=== PATIENT | female | born 1965 | race Caucasian/White ===

== ENCOUNTER 2020-03-18 18:40 | Emergency (ER) | payer OTHER ==
[2020-03-18] MEDS ORDERED: KEFLEX 500 MG PO ONE (19:23)
[2020-03-18] MEDS ORDERED: KEFLEX 500 MG ONE (19:27)
--- NOTE | 2020-03-18 19:27 | ERPHSYRPT ---
- History of Present Illness Time Seen by Provider: 03/18/20 19:12 Source: patient Exam Limitations: no limitations Patient Subjective Stated Complaint: cyst Triage Nursing Assessment: pt to ED c/o abscsess to lower L abd that has been there for 10 years. PCP knows about cyst, however pt scraped it with a dresser while moving 2 wks ago and has been draining. "yellow gross fluid then dark thick blood." rates 8/10 pain when anything (palpation or clothing) touches cyst. no drainage on arrival to ED. Physician History: 54 years old female with history of anxiety, hypertension, hypothyroidism presented in the ER with a chief complaint of small cyst on left anterior abdominal wall with some swelling and pain for the last couple of days. Patient report she had the cyst for years and 2 weeks ago she accidentally hit against the furniture while moving at the end had drainage of yellow cheesy stuff which improved. Since couple of days she is having increasing pain and some redness around this swelling and localized increased temperature. Although she did not notice any discharge. Pain is mild to moderate intensity dull to sharp in nature, more with palpation, squeezing. Denies any fever or chills. No sick contact. Allergies/Adverse Reactions: egg Allergy (Verified 03/18/20 19:02) latex Allergy (Verified 03/18/20 19:02) lidocaine Allergy (Verified 03/18/20 19:02) Home Medications: Levothyroxine Sodium 100 mcg PO DAILY 03/18/20 [History] Metoprolol Succinate 100 mg PO DAILY 03/18/20 [History] Venlafaxine HCl ER 37.5 mg [Effexor ER 37.5 MG] 37.5 mg PO DAILY 03/18/20 [History] Hx Tetanus, Diphtheria Vaccination/Date Given: Yes Hx Influenza Vaccination/Date Given: No Hx Pneumococcal Vaccination/Date Given: No Immunizations Up to Date: Yes Travel Risk - International Travel Have you traveled outside of the country in past 3 weeks: No - Coronavirus Screening Are you exhibiting any of the following symptoms?: No Close contact with a COVID-19 positive Pt in past 14-21 Days: No - Review of Systems Constitutional: No Symptoms Eyes: No Symptoms Ears, Nose, & Throat: No Symptoms Respiratory: No Symptoms Cardiac: No Symptoms Abdominal/Gastrointestinal: No Symptoms Genitourinary Symptoms: No Symptoms Musculoskeletal: No Symptoms Skin: Induration, Skin Lesions Neurological: No Symptoms Psychological: Anxiety Endocrine: No Symptoms - Past Medical History Pertinent Past Medical History: Yes Cardiac History: Hypertension, Other Endocrine Medical History: Other Psycho-Social History: Anxiety, Other Female Reproductive Disorders: Other Other Medical History: PTSD. thyroid disease. mitral valve prolapse. 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 hysterectomy removed. - Past Surgical History Past Surgical History: Yes Gastrointestinal: Cholecystectomy Female Surgical History: Hysterectomy, Tubal Ligation, Lumpectomy - Social History Smoking Status: Light tobacco smoker Exposure to second hand smoke: No Drug Use: none Patient Lives Alone: Yes - Female History Hx Now: No - Nursing Vital Signs Nursing Vital Signs: Initial Vital Signs Temperature 98.3 F 03/18/20 18:48 Pulse Rate 81 03/18/20 18:48 Respiratory Rate 18 03/18/20 18:48 Blood Pressure 167/94 03/18/20 18:48 O2 Sat by Pulse Oximetry 97 03/18/20 18:48 Pain Scale Pain Intensity 8 - Physical Exam General Appearance: no apparent distress Eye Exam: eyes nml inspection Neck Exam: normal inspection Respiratory Exam: normal breath sounds, lungs clear Cardiovascular Exam: regular rate/rhythm, normal heart sounds Gastrointestinal/Abdomen Exam: soft, normal bowel sounds, No tenderness Back Exam: normal inspection Extremity Exam: normal inspection Neurologic Exam: alert, oriented x 3, cooperative Skin Exam: normal color, other (2 x 2 cm small cyst with induration, warm mildly tender to touch on the left anterior abdominal wall. No fluctuation. No discharge.) SpO2 Interpretation: normal SpO2: 97 O2 Delivery: Room Air - Progress Progress: unchanged Progress Note: 03/18/20 19:27 Patient has infected sebaceous cyst. Started on antibiotics. Recommended outpatient follow-up once infection is resolved for excision. Tylenol ibuprofen as needed for pain. 03/18/20 19:27 Counseled pt/family regarding: diagnosis, need for follow-up - Departure Departure Disposition: Home Clinical Impression: Infected sebaceous cyst of skin Condition: Stable Critical Care Time: No Referrals: DOCTOR,NO FAMILY [Primary Care Provider] - DENNY TRIMBLE MD [ACTIVE STAFF] - Follow Up with PCP/3 days Instructions: Wound Infection Additional Instructions: Take Tylenol/ibuprofen as needed. Apply warm compresses. Continue with antibiotics. Follow-up with primary care for reevaluation. Return to ER for increased swelling redness discharge/fever chills etc. Prescriptions: Cephalexin Mh 500 mg [Keflex 500 mg] 500 mg PO TID #21 capsule
[2020-03-18 19:58] VITALS: BP 135/86; PULSE 78; O2SAT 99
== END 2020-03-18 19:58 | disposition home or self-care (01) ==
LOC: ED 18:40
DX: L72.3 Sebaceous cyst (principal)
CPT/HCPCS: 99283; A9270-GY

== ENCOUNTER 2021-02-19 14:42 | Emergency (ER) | payer OTHER ==
[2021-02-19] MEDS ORDERED: BABY ASPIRIN 81 MG CHEW PO ONE (15:18)
--- NOTE | 2021-02-19 15:33 | ERPHSYRPT ---
- History of Present Illness Time Seen by Provider: 02/19/21 15:28 Source: patient Exam Limitations: no limitations Patient Subjective Stated Complaint: pt reports hypertension, shortness of breath and chest heaviness. pt states she started a new job with [employer] and she is required to wear a mask at all times, pt states this has caused her great anxiety. pt reports last night her blood pressure was in the 200's. Triage Nursing Assessment: pt is aox3, ambulatory to trt room with no difficulties, pt presents wearing her mask, pt is in no acute distress, pupils perrl, afebrile, resps easy and non labored, cap refill < seconds, radial pulses strong and equal, no edema noted, pt skin pink warm dry. Physician History: This is an overweight 55-year-old white female who has a history of mitral valve prolapse and hypothyroidism. She is taking levothyroxine and metoprolol. She also has some anxiety issues and is on Effexor. Patient started a new job at [employer] and they require wearing a mask at all times while working. She feels short of breath and has chest pressure when wearing it. It is also causing her anxiety. She was told that in order for her to wear a different type of protection such as a shield, she would need a note from her doctor. Her doctor is in [place]. Patient states she took her blood pressure last night and her systolic blood pressure was 200. Today, she took her blood pressure and her systolic blood pressure was in the 130s. Timing/Duration: yesterday, other (Symptoms seem to correlate with the of her mask at work) Severity: mild Associated Symptoms: shortness of breath, chest pain (Described as pressure) Allergies/Adverse Reactions: egg Allergy (Verified 02/19/21 15:08) latex Allergy (Verified 02/19/21 15:08) lidocaine Allergy (Verified 02/19/21 15:08) Home Medications: Levothyroxine Sodium 100 mcg PO DAILY 03/18/20 [History] Metoprolol Succinate 100 mg PO DAILY 03/18/20 [History] Venlafaxine HCl ER 37.5 mg [Effexor ER 37.5 MG] 37.5 mg PO DAILY 03/18/20 [History] Hx Tetanus, Diphtheria Vaccination/Date Given: Yes Hx Influenza Vaccination/Date Given: No Hx Pneumococcal Vaccination/Date Given: No Immunizations Up to Date: Yes Travel Risk - International Travel Have you traveled outside of the country in past 3 weeks: No - Coronavirus Screening Are you exhibiting any of the following symptoms?: No - Vaccine Status Have you recieved a Covid-19 vaccination: No - Review of Systems Constitutional: No Symptoms Eyes: No Symptoms Ears, Nose, & Throat: No Symptoms Respiratory: Dyspnea (Mild) Cardiac: Chest Pain (Described as pressure) Abdominal/Gastrointestinal: No Symptoms Genitourinary Symptoms: No Symptoms Musculoskeletal: No Symptoms Skin: No Symptoms Neurological: No Symptoms Psychological: No Symptoms Endocrine: No Symptoms Hematologic/Lymphatic: No Symptoms Immunological/Allergic: No Symptoms All Other Systems: Reviewed and Negative - Past Medical History Pertinent Past Medical History: Yes Cardiac History: Hypertension, Other Endocrine Medical History: Other Psycho-Social History: Anxiety, Other Female Reproductive Disorders: Other Other Medical History: PTSD. thyroid disease. mitral valve prolapse. 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 hysterectomy removed. - Past Surgical History Past Surgical History: Yes Gastrointestinal: Cholecystectomy Female Surgical History: Hysterectomy, Tubal Ligation, Lumpectomy - Social History Smoking Status: Never smoker Exposure to second hand smoke: No Drug Use: none Patient Lives Alone: Yes - Female History Hx Now: No - Nursing Vital Signs Nursing Vital Signs: Initial Vital Signs Temperature 97.7 F 02/19/21 14:47 Pulse Rate 70 02/19/21 14:47 Respiratory Rate 18 02/19/21 14:47 Blood Pressure 137/78 02/19/21 14:47 O2 Sat by Pulse Oximetry 100 02/19/21 14:47 Pain Scale Pain Intensity 6 - Physical Exam General Appearance: no apparent distress, alert, anxiety, obese Eye Exam: PERRL/EOMI, eyes nml inspection Ears, Nose, Throat Exam: normal ENT inspection, moist mucous membranes Neck Exam: normal inspection, non-tender, supple, full range of motion Respiratory Exam: normal breath sounds, lungs clear, airway intact, No chest tenderness, No respiratory distress Cardiovascular Exam: regular rate/rhythm, normal heart sounds, normal peripheral pulses Gastrointestinal/Abdomen Exam: soft, normal bowel sounds, No tenderness Pelvic Exam: not done Rectal Exam: not done Back Exam: normal inspection, normal range of motion, No CVA tenderness, No vertebral tenderness Extremity Exam: normal inspection, normal range of motion, pelvis stable Neurologic Exam: alert, oriented x 3, cooperative, metal checker II-XII nml as tested, normal mood/affect, nml cerebellar function, nml station & gait, sensation nml Skin Exam: normal color, warm, dry Lymphatic Exam: No adenopathy SpO2 Interpretation: normal SpO2: 98 O2 Delivery: Room Air - Course Nursing assessment & vital signs reviewed: Yes EKG Interpreted by Me: RATE ([id number]), NORMAL AXIS, NORMAL INTERVALS, NORMAL QRS, Non-specific ST Changes, Other (No acute ischemic changes on today's EKG. No comparison EKG available.) Ordered Tests: Active Orders 24 hr Category Date Time Status Account Service Associate STAT Care 02/19/21 15:18 Active EKG-ER Only STAT Care 02/19/21 15:18 Active Pulse Oximetry (ED) STAT Care 02/19/21 15:18 Active CBC W DIFF Stat Lab 02/19/21 15:30 Completed CMP Stat Lab 02/19/21 15:30 Completed D-DIMER QUANTITATIVE Stat Lab 02/19/21 15:30 Completed NT PRO BNP Stat Lab 02/19/21 15:30 Completed T4 (Thyroxine) Stat Lab 02/19/21 15:30 Completed TROPONIN Q3H Lab 02/19/21 15:30 Completed TROPONIN Q3H Lab 02/19/21 18:30 Ordered TROPONIN Q3H Lab 02/19/21 21:30 Ordered TROPONIN Q3H Lab 02/20/21 00:30 Ordered TROPONIN Q3H Lab 02/20/21 03:30 Ordered TSH [TSH, 3RD Generation] Stat Lab 02/19/21 15:30 Completed Medication Summary Discontinued Medications Generic Name Dose Route Start Last Admin Trade Name Jaradq PRN Reason Stop Dose Admin Aspirin 324 mg 02/19/21 15:18 02/19/21 15:44 Baby Aspirin 81 Mg Chew PO 02/19/21 15:19 324 mg STAT ONE Administration Aspirin Confirm 02/19/21 15:42 Baby Aspirin 81 Mg Chew Administered 02/19/21 15:43 Dose 324 mg .ROUTE .STK-MED ONE Lab/Rad Data: Laboratory Result Diagrams 02/19/21 15:30 02/19/21 15:30 Laboratory Results 02/19/21 02/19/21 02/19/21 Range/Units 15:30 15:30 15:30 WBC (4.0-10.5) K/mm3 RBC (4.1-5.4) M/mm3 Hgb (12.0-16.0) gm/dl Hct (35-47) % MCV (78-100) fl MCH (26-32) pg MCHC (32-36) g/dl RDW (11.5-14.0) % Plt Count (150-450) K/mm3 MPV (7.5-11.0) fl Gran % (36.0-66.0) % Eos # (Auto) (0-0.5) Absolute Lymphs (auto) (1.0-4.6) Absolute Monos (auto) (0.0-1.3) Lymphocytes % (24.0-44.0) % Monocytes % (0.0-12.0) % Eosinophils % (0.00-5.0) % Basophils % (0.0-0.4) % Absolute Granulocytes (1.4-6.9) Basophils # (0-0.4) D-Dimer (215-500) ng/mL Sodium (137-145) mmol/L Potassium (3.5-5.1) mmol/L Chloride (98-107) mmol/L Carbon Dioxide (22-30) mmol/L Anion Gap (5-15) MEQ/L BUN (7-17) mg/dL Creatinine (0.52-1.04) mg/dL Estimated GFR ML/MIN Glucose (74-106) mg/dL Calcium (8.4-10.2) mg/dL Total Bilirubin (0.2-1.3) mg/dL AST (14-36) U/L ALT (0-35) U/L Alkaline Phosphatase (38-126) U/L Troponin I < 0.012 (0.000-0.034) ng/mL NT-Pro-B Natriuret Pep (0-900) pg/mL Serum Total Protein (6.3-8.2) g/dL Albumin (3.5-5.0) g/dL Thyroxine (T4) 9.99 (5.53-10.96) ug/dL TSH 3rd Generation 1.320 (0.47-4.68) mIU/L 02/19/21 02/19/21 02/19/21 Range/Units 15:30 15:30 15:30 WBC 7.1 (4.0-10.5) K/mm3 RBC 4.32 (4.1-5.4) M/mm3 Hgb 12.9 (12.0-16.0) gm/dl Hct 39.7 (35-47) % MCV 91.9 (78-100) fl MCH 29.9 (26-32) pg MCHC 32.5 (32-36) g/dl RDW 13.0 (11.5-14.0) % Plt Count 316 (150-450) K/mm3 MPV 9.4 (7.5-11.0) fl Gran % 45.6 (36.0-66.0) % Eos # (Auto) 0.26 (0-0.5) Absolute Lymphs (auto) 2.89 (1.0-4.6) Absolute Monos (auto) 0.69 (0.0-1.3) Lymphocytes % 40.5 (24.0-44.0) % Monocytes % 9.7 (0.0-12.0) % Eosinophils % 3.6 (0.00-5.0) % Basophils % 0.6 (0.0-0.4) % Absolute Granulocytes 3.25 (1.4-6.9) Basophils # 0.04 (0-0.4) D-Dimer 291 (215-500) ng/mL Sodium 141 (137-145) mmol/L Potassium 3.8 (3.5-5.1) mmol/L Chloride 103 (98-107) mmol/L Carbon Dioxide 25 (22-30) mmol/L Anion Gap 17.3 H (5-15) MEQ/L BUN 19 H (7-17) mg/dL Creatinine 1.21 H (0.52-1.04) mg/dL Estimated GFR 49.5 ML/MIN Glucose 114 H (74-106) mg/dL Calcium 9.6 (8.4-10.2) mg/dL Total Bilirubin 0.40 (0.2-1.3) mg/dL AST 27 (14-36) U/L ALT 16 (0-35) U/L Alkaline Phosphatase 51 (38-126) U/L Troponin I (0.000-0.034) ng/mL NT-Pro-B Natriuret Pep 102 (0-900) pg/mL Serum Total Protein 7.7 (6.3-8.2) g/dL Albumin 4.4 (3.5-5.0) g/dL Thyroxine (T4) (5.53-10.96) ug/dL TSH 3rd Generation (0.47-4.68) mIU/L - Progress Progress: improved Counseled pt/family regarding: lab results, diagnosis, need for follow-up - Departure Departure Disposition: Home Clinical Impression: Hypertension, Shortness of breath Condition: Stable Critical Care Time: No Referrals: DOCTOR,NO FAMILY [Primary Care Provider] - Additional Instructions: Take your medications as prescribed. Follow-up with your primary care physician for further evaluation and for any type of notes that you might need for work.
[2021-02-19 15:37] LABS: Absolute Neutrophil Ct (ANC) 3.25 (1.4-6.9); BASOPHIL % 0.6 % (0.0-0.4); Basophil (Absolute #) 0.04 (0-0.4); Eosinophil % 3.6 % (0.00-5.0); Eosinophil (Absolute #) 0.26 (0-0.5); Hematocrit 39.7 % (35-47); Hemoglobin 12.9 gm/dl (12.0-16.0); Lymphocyte (Absolute #) 2.89 (1.0-4.6); Lymphocytes % 40.5 % (24.0-44.0); Mean Cell Volume 91.9 fl (78-100); Mean Corpuscular Hemoglobin 29.9 pg (26-32); Mean Corpuscular Hgb Concent. 32.5 g/dl (32-36); Mean Platelet Volume 9.4 fl (7.5-11.0); Monocyte (Absolute #) 0.69 (0.0-1.3); Monocytes % 9.7 % (0.0-12.0); Neutrophil % 45.6 % (36.0-66.0); Platelet Count 316 K/mm3 (150-450); Red Blood Count 4.32 M/mm3 (4.1-5.4); White Blood Count 7.1 K/mm3 (4.0-10.5)
[2021-02-19] MEDS ORDERED: BABY ASPIRIN 81 MG CHEW ONE (15:42)
[2021-02-19 16:02] VITALS: PULSE 64
[2021-02-19 16:15] LABS: ALBUMIN 4.4 g/dL (3.5-5.0); ANION GAP 17.3 MEQ/L (5-15); BILIRUBIN,TOTAL 0.4 mg/dL (0.2-1.3); Calcium 9.6 mg/dL (8.4-10.2); Creatinine 1 1.21 mg/dL (0.52-1.04); EST GLOMERULAR FILTRATION RATE 49.5 ML/MIN; Potassium 3.8 mmol/L (3.5-5.1); Total Protein 7.7 g/dL (6.3-8.2)
[2021-02-19 17:12] VITALS: BP 112/73; O2SAT 98
== END 2021-02-19 17:27 | disposition home or self-care (01) ==
LOC: ED 14:42
DX: I10 Essential (primary) hypertension (principal)
CPT/HCPCS: 36415; 80053; 83880; 84436; 84443; 84484; 85025; 85379; 93005; 93041; 94760; 99284; A9270-GY